=== PATIENT | male | born 1960 | race Two or more races ===

== ENCOUNTER 2018-12-03 09:49 | Day surgery (SDC) | payer BC ==
[~2018-12-03 09:49] MED LIST: Lactated Ringers 1,000 ML IV SCH
--- NOTE | 2018-12-03 10:15 | PCM.PREANE ---
Preanesthetic Assessment - Anesthesia/Transfusion/Family Hx Anesthesia History: Prior Anesthesia Without Reaction Family History of Anesthesia Reaction: No Transfusion History: No Prior Transfusion(s) - Review of Systems General: No Symptoms Pulmonary: No Symptoms Cardiovascular: No Symptoms Gastrointestinal: No Symptoms Neurological: No Symptoms Other: Reports: None - Physical Assessment Vital Signs: Last Vital Signs Temp 97.5 F 12/03/18 09:57 Pulse 101 H 12/03/18 09:57 Resp 16 12/03/18 09:57 BP 96/72 12/03/18 09:57 Pulse Ox 99 12/03/18 09:57 Height: 5 ft 7 in Weight: 79.832 kg ASA Class: 1 Mental Status: Alert & Oriented x3 Airway Class: Mallampati = 2 Dentition: Reports: Implants (has veneeres or crowns/implants on 3 or 4 central maxillary incisors) Lungs: Clear to Auscultation, Normal Respiratory Effort Cardiovascular: Regular Rate, Regular Rhythm - Allergies Allergies/Adverse Reactions: Allergies Allergy/AdvReac Type Severity Reaction Status Date / Time No Known Allergies Allergy Verified 11/30/18 09:50 - Blood Blood Available: No - Anesthesia Plan Pre-Op Medication Ordered: None - Acknowledgements Anesthesia Type Planned: General Anesthesia Pt an Appropriate Candidate for the Planned Anesthesia: Yes Alternatives and Risks of Anesthesia Discussed w Pt/Guardian: Yes Pt/Guardian Understands and Agrees with Anesthesia Plan: Yes Additional Comments: PMH: risk of dental imjury PLAN tiva PreAnesthesia Questionnaire HEENT History: Reports: None Cardiovascular History: Reports: None Respiratory History: Reports: None Gastrointestinal History: Reports: Colon Polyp, Other (See Below) Other Gastrointestinal History: difficulty swalling at times Genitourinary History: Reports: None Musculoskeletal History: Reports: None Neurological History: Reports: None Psychiatric History: Reports: None Endocrine/Metabolic History: Reports: None Hematologic History: Reports: None Immunologic History: Reports: None Oncologic (Cancer) History: Reports: None Dermatologic History: Reports: None - Past Surgical History Head Surgeries/Procedures: Reports: None HEENT Surgical History: Reports: None Cardiovascular Surgical History: Reports: None Respiratory Surgical History: Reports: None GI Surgical History: Reports: Appendectomy, Colonoscopy Male Surgical History: Reports: None Endocrine Surgical History: Reports: None Neurological Surgical History: Reports: None Musculoskeletal Surgical History: Reports: None Oncologic Surgical History: Reports: None Dermatological Surgical History: Reports: None - SUBSTANCE USE Smoking Status *Q: Never Smoker Recreational Drug Use History: No - HOME MEDS Home Medications: Home Meds . [No Known Home Meds] 11/30/18 [History] - CURRENT (IN HOUSE) MEDS Current Meds: Current Medications Lactated Ringer's (Ringers, Lactated) 1,000 mls @ 125 mls/hr IV ASDIRECTED [facility] Last Admin: 12/03/18 10:05 Dose: 125 mls/hr
[2018-12-03] MEDS ORDERED: Propofol 200 MG/20 ML SDV ONE ×2 (10:37→10:46)
[2018-12-03] MEDS ORDERED: Lidocaine 2% 5 ML SDV ONE (10:46)
[2018-12-03] MEDS ORDERED: Ketamine 500 mg/10 ML MDV ONE (10:46)
[2018-12-03] MEDS ORDERED: Glycopyrrolate 0.2 MG/ML SDV ONE ×2 (10:46)
--- NOTE | 2018-12-03 11:06 | PCM.OPNOTE ---
- General Post-Op/Procedure Note Date of Surgery/Procedure: 12/03/18 Operative Procedure(s): Esophagogastroduodenoscopy with antral and esophageal biopsies. Colonoscopy with cold cecal polypectomy. Pre Op Diagnosis: Dysphagia with progressive heartburn. Personal history of colon polyps. Post-Op Diagnosis: Acute gastritis. Esophagitis. Cecal polyp. Anesthesia Technique: MAC (ASA I) Primary Surgeon: Temo Beavers Condition: Good Free Text/Narrative:: DICTATION [id number] CPT CODE [id number]
[2018-12-03] MEDS ORDERED: Lactated Ringers 1,000 ML IV SCH (11:15)
--- NOTE | 2018-12-03 11:39 | PCM.POSTAN ---
POST ANESTHESIA ASSESSMENT - MENTAL STATUS Mental Status: Alert, Oriented - VITAL SIGNS Vital Signs: Last Vital Signs Temp 97.5 F 12/03/18 09:57 Pulse 88 12/03/18 11:32 Resp 16 12/03/18 11:32 BP 112/87 12/03/18 11:32 Pulse Ox 97 12/03/18 11:32 - RESPIRATORY Respiratory Status: Respiratory Rate WNL, Airway Patent, O2 Saturation Stable - CARDIOVASCULAR CV Status: Pulse Rate WNL, Blood Pressure Stable - GASTROINTESTINAL GI Status: No Symptoms - PAIN Pain Score: 0 - POST OP HYDRATION Hydration Status: Adequate & Stable - OBSERVATIONS Free Text/Narrative:: Stable for phase II recovery
--- NOTE | 2018-12-03 12:01 | PCM48HPAN ---
Post Anesthesia Note - EVALUATION WITHIN 48HRS OF ANESTHETIC Vital Signs in Normal Range: Yes Patient Participated in Evaluation: Yes Respiratory Function Stable: Yes Airway Patent: Yes Cardiovascular Function Stable: Yes Hydration Status Stable: Yes Pain Control Satisfactory: Yes Nausea and Vomiting Control Satisfactory: Yes Mental Status Recovered: Yes Vital Signs: Last Vital Signs Temp 97.5 F 12/03/18 09:57 Pulse 93 12/03/18 11:42 Resp 14 12/03/18 11:42 BP 127/66 12/03/18 11:42 Pulse Ox 99 12/03/18 11:42
--- NOTE | 2018-12-03 12:52 | OR ---
SURGEON: Temo Beavers M.D. DATE OF PROCEDURE: 12/03/2018 OPERATION PERFORMED: Esophagogastroduodenoscopy with biopsy. PRIMARY SURGEON: Temo Beavers MD. ANESTHESIA: MAC. ASA CLASSIFICATION: I. PREOPERATIVE DIAGNOSIS: Dysphagia with progressive heartburn. POSTOPERATIVE DIAGNOSIS: Acute gastritis without ulceration. DESCRIPTION OF PROCEDURE: The patient was taken to the endoscopy room and positioned on the endoscopy table in the left lateral decubitus position. Time-out was called for appropriate identification of the patient and procedure. Monitored anesthesia care was provided. The bite block was placed between the patient's teeth. The gastroscope was inserted through the bite block and advanced through the oropharynx into the esophagus without difficulty. It was then advanced through the esophagus and stomach into the duodenum where examination could now be carried out in a retrograde fashion. The duodenum shows no acute inflammatory changes or ulcerations. The stomach does show mild to moderate acute gastritis, particularly distally. Antral biopsies were obtained to look for the presence of Helicobacter pylori. The gastroscope was then retroflexed to visualize the proximal stomach. The patient does have a small hiatal hernia. No tumors or ulcerations were noted proximally. The gastroscope was then straightened and slowly withdrawn aspirating the stomach as the scope was withdrawn. The distal esophagus also shows some acute inflammatory changes and separate biopsies of the distal esophagus at the Z-line were obtained. No obvious tumor, mass, or ulcerations were noted. The esophagus itself demonstrates poor contractility with minimal longitudinal stripping waves. The vocal cords were not visualized as the scope was withdrawn. The gastroscope was then removed with the patient having tolerated this portion of the procedure well. Following colonoscopy, he was taken to recovery room in stable condition. JENNY / TRANG /[id number]
--- NOTE | 2018-12-03 13:07 | OR ---
SURGEON: Temo Beavers M.D. DATE OF PROCEDURE: 12/03/2018 OPERATION PERFORMED: Colonoscopy with cold cecal polypectomy. PRIMARY SURGEON: Temo Beavers MD. ANESTHESIA: MAC. ASA CLASSIFICATION: I. PREOPERATIVE DIAGNOSIS: Personal history of colon polyps. POSTOPERATIVE DIAGNOSIS: Cecal polyp. DESCRIPTION OF PROCEDURE: With the patient having completed an upper GI endoscopy, he was now maintained in the left lateral decubitus position. The colonoscope was inserted into the rectum and advanced with minimal difficulty to the cecum where the colonoscope was retroflexed to visualize the ascending colon from below. The colonoscope was then straightened and slowly withdrawn. One polyp was encountered in the cecum and this was removed with the cold biopsy forceps. The colonoscope had been retroflexed to visualize the ascending colon from below, then straightened and slowly withdrawn. The ascending colon, hepatic flexure, transverse colon, splenic flexure, descending colon, sigmoid colon, and rectum were very well visualized. There were no tumors or polyps. No diverticular changes were noted. There was no evidence of angiodysplasia or inflammatory bowel disease. Once the colonoscope was withdrawn to the rectum, it was retroflexed to visualize the anal orifice from above. Again, no tumors or polyps were seen and there were no acute hemorrhoidal changes. The colonoscope was then straightened, the rectum aspirated, and the colonoscope removed. The patient tolerated the procedure well and was taken to recovery room in stable condition. JENNY / TRANG /[id number]
== END 2018-12-03 12:04 | disposition home or self-care (01) ==
LOC: MW.SDS 09:49
PROVIDERS: ATTEND Surgery
DX: Z12.11 Encounter for screening for malignant neoplasm of colon (principal); D12.0 Benign neoplasm of cecum; K20.9 Esophagitis, unspecified; K29.00 Acute gastritis without bleeding; K29.50 Unspecified chronic gastritis without bleeding; B96.81 Helicobacter pylori [H. pylori] as the cause of diseases classified elsewhere; K44.9 Diaphragmatic hernia without obstruction or gangrene; R12 Heartburn; Z86.010 Personal history of colon polyps
CPT/HCPCS: J2001; J2704; J3490; J7120

== ENCOUNTER 2020-02-15 18:16 | Emergency (ER) | payer BC ==
[2020-02-15] MEDS ORDERED: Sodium Chloride 0.9% 10 ML Syringe FLUSH PRN (18:58)
[2020-02-15] MEDS ORDERED: Sodium Chloride 0.9% 2.5 ML Syringe FLUSH PRN (18:58)
[2020-02-15] MEDS ORDERED: Ondansetron 4 MG/2 ML SDV IVPUSH ONE (18:58)
[2020-02-15] MEDS ORDERED: Ketorolac 15 MG/ML SDV IVPUSH ONE (18:58)
--- NOTE | 2020-02-15 19:03 | EDM.PDOC ---
ED HPI GENERAL MEDICAL PROBLEM - General Chief Complaint: Abdominal Pain Stated Complaint: ABDOMINAL PAIN, NAUSEA Time Seen by Provider: 02/15/20 18:54 - History of Present Illness INITIAL COMMENTS - FREE TEXT/NARRATIVE: History of present illness: [] The patient had onset after working 1:30 PM today of pain in the right upper quadrant. It seems to go across his abdomen from the right upper quadrant to the left and he is putting heating pad. He had no rash until he put a heating pad. Nausea and vomited 3 times. Flush but does not have any documented fever. He had the feeling he was going to have diarrhea but he did not have diarrhea and did not in fact have a stool today. Urine function appears normal but he has a feeling of fullness like he has to go even after he empties. He has a past history of kidney stone and no gallbladder problems. He is a non-smoker and does not take any medicine. Review of systems: As per history of present illness and below otherwise all systems reviewed and negative. Past medical history: As per history of present illness and as reviewed below otherwise noncontributory. Surgical history: As per history of present illness and as reviewed below otherwise noncontributory. Social history: No reported history of drug or alcohol abuse. Family history: As per history of present illness and as reviewed below otherwise noncontributory. Physical exam: Constitutional - well developed, well-nourished and in no acute distress HEENT - normocephalic, no evidence of trauma - external nose and mouth normal - no mass in neck and no JVD - mucosae moist EYES - full EOM, PERRL, no icterus - no evidence of inflammation, injection, or drainage Respiratory - no respiratory distress, equal bilateral expansion, lungs clear to auscultation and no abnormal lung sounds Cardiovascular - Regular Rhythm with S1 and S2 appreciated and no murmur, gallop or rub. GI -this in the right upper quadrant. This is localized near where Whitten sign but he is not guarding that area. Abdomen soft without distension or organomegaly - normal bowel sounds - no guard or rebound Normal external genitalia no mass Musculoskeletal no gross deformity of long bones or joints - no tenderness, swelling or edema Neurologic - Alert and oriented times four - CN II-XII grossly intact - motor sensory and coordination symmetrically normal Psychiatric - appropriate mood and affect with normal thought content Hematologic - No petechiae or purpura - mucosa appropriate color and sclera not pale - normal nail bed color and refill Integument - no rash or evidence of trauma - normal turgor Diagnostics: [] Therapeutics: [] Impression: [] Plan: [] Definitive disposition and diagnosis as appropriate pending reevaluation and review of above. abdomen Pain Score (Numeric/FACES): 8 - Related Data Allergies Allergy/AdvReac Type Severity Reaction Status Date / Time No Known Allergies Allergy Verified 11/30/18 09:50 Home Meds: Home Meds . [No Known Home Meds] 11/30/18 [History] Past Medical History HEENT History: Reports: None Cardiovascular History: Reports: None Respiratory History: Reports: None Gastrointestinal History: Reports: Colon Polyp, Other (See Below) Other Gastrointestinal History: difficulty swalling at times Genitourinary History: Reports: None Musculoskeletal History: Reports: None Neurological History: Reports: None Psychiatric History: Reports: None Endocrine/Metabolic History: Reports: None Hematologic History: Reports: None Immunologic History: Reports: None Oncologic (Cancer) History: Reports: None Dermatologic History: Reports: None - Past Surgical History Head Surgeries/Procedures: Reports: None HEENT Surgical History: Reports: None Cardiovascular Surgical History: Reports: None Respiratory Surgical History: Reports: None GI Surgical History: Reports: Appendectomy, Colonoscopy Male Surgical History: Reports: None Endocrine Surgical History: Reports: None Neurological Surgical History: Reports: None Musculoskeletal Surgical History: Reports: None Oncologic Surgical History: Reports: None Dermatological Surgical History: Reports: None ED ROS GENERAL - Review of Systems Review Of Systems: Comprehensive ROS is negative, except as noted in HPI. ED EXAM, GENERAL - Physical Exam Exam: See Below Free Text/Narrative:: My physical exam is in the HPI Course - Vital Signs Last Recorded V/S: Last Vital Signs Temp 36.4 C 02/15/20 18:34 Pulse 86 02/15/20 20:04 Resp 18 02/15/20 20:04 BP 122/85 02/15/20 20:04 Pulse Ox 96 02/15/20 20:04 The patient is asymptomatic after 1 dose of ketorolac. He has a 1 to 2 mm distal UVJ stone on the right. He has perinephric fluid suggesting calyceal injury. He has a BUN and creatinine slightly elevated in the face of normal lab work according to him a year ago. Discussed with Dr. Griffin and he will see him in the office in 2 days. - Orders/Labs/Meds Orders: Active Orders 24 hr Category Date Time Status Strain Urine [RC] ASDIRECTED Care 02/15/20 19:00 Active Sodium Chloride 0.9% [Normal Saline] 1,000 ml Med 02/15/20 19:15 Active IV ASDIRECTED Sodium Chloride 0.9% [Saline Flush] Med 02/15/20 18:58 Active 10 ml FLUSH ASDIRECTED PRN Sodium Chloride 0.9% [Saline Flush] Med 02/15/20 18:58 Active 2.5 ml FLUSH ASDIRECTED PRN Saline Lock Insert [OM.PC] Stat Oth 02/15/20 18:59 Ordered Medication Orders Sodium Chloride (Normal Saline) 1,000 mls @ 150 mls/hr IV ASDIRECTED [facility] Last Admin: 02/15/20 19:16 Dose: 150 mls/hr Documented by: [id number] Sodium Chloride (Saline Flush) 10 ml FLUSH ASDIRECTED PRN PRN Reason: Keep Vein Open Sodium Chloride (Saline Flush) 2.5 ml FLUSH ASDIRECTED PRN PRN Reason: Keep Vein Open Labs: Laboratory Tests 02/15/20 02/15/20 02/15/20 Range/Units 19:16 19:16 20:15 WBC 14.19 H (4.0-11.0) K/uL RBC 5.46 (4.50-5.90) M/uL Hgb 14.6 (13.0-17.0) g/dL Hct 43.9 (38.0-50.0) % MCV 80.4 (80.0-98.0) fL MCH 26.7 L (27.0-32.0) pg MCHC 33.3 (31.0-37.0) g/dL RDW Std Deviation 38.5 (28.0-62.0) fl RDW Coeff of Bernardo 13 (11.0-15.0) % Plt Count 215 (150-400) K/uL MPV 10.90 (7.40-12.00) fL Neut % (Auto) 87.9 H (48.0-80.0) % Lymph % (Auto) 5.1 L (16.0-40.0) % Barton % (Auto) 6.9 (0.0-15.0) % Eos % (Auto) 0.0 (0.0-7.0) % Baso % (Auto) 0.1 (0.0-1.5) % Neut # (Auto) 12.5 H (1.4-5.7) K/uL Lymph # (Auto) 0.7 (0.6-2.4) K/uL Barton # (Auto) 1.0 H (0.0-0.8) K/uL Eos # (Auto) 0.0 (0.0-0.7) K/uL Baso # (Auto) 0.0 (0.0-0.1) K/uL Nucleated RBC % 0.0 /100WBC Nucleated RBCs # 0 K/uL Sodium 136 (136-148) mmol/L Potassium 3.7 (3.5-5.1) mmol/L Chloride 101 (98-107) mmol/L Carbon Dioxide 25.2 (21.0-32.0) mmol/L BUN 19 H (7.0-18.0) mg/dL Creatinine 1.7 H (0.8-1.3) mg/dL Est Cr Clr Drug Dosing 44.28 mL/min Estimated GFR (MDRD) 41.6 ml/min Glucose 124 H (74-106) mg/dL Calcium 9.5 (8.5-10.1) mg/dL Total Bilirubin 0.8 (0.2-1.0) mg/dL AST 18 (15-37) IU/L ALT 32 (14-63) IU/L Alkaline Phosphatase 70 (46-116) U/L Total Protein 7.6 (6.4-8.2) g/dL Albumin 4.2 (3.4-5.0) g/dL Globulin 3.4 (2.6-4.0) g/dL Albumin/Globulin Ratio 1.2 (0.9-1.6) Lipase 104 (73-393) U/L Urine Color YELLOW Urine Appearance CLEAR Urine pH 6.0 (5.0-8.0) Ur Specific [place] 1.010 (1.001-1.035) Urine Protein NEGATIVE (NEGATIVE) mg/dL Urine Glucose (UA) NEGATIVE (NEGATIVE) mg/dL Urine Ketones NEGATIVE (NEGATIVE) mg/dL Urine Occult Blood NEGATIVE (NEGATIVE) Urine Nitrite NEGATIVE (NEGATIVE) Urine Bilirubin NEGATIVE (NEGATIVE) Urine Urobilinogen 0.2 (<2.0) EU/dL Ur Leukocyte Esterase NEGATIVE (NEGATIVE) Meds: Medications Generic Name Dose Route Start Last Admin Trade Name Freq PRN Reason Stop Dose Admin Sodium Chloride 1,000 mls @ 150 mls/hr 02/15/20 19:15 02/15/20 19:16 Normal Saline IV 150 mls/hr ASDIRECTED [facility] Administration Sodium Chloride 10 ml 02/15/20 18:58 Saline Flush FLUSH ASDIRECTED PRN Keep Vein Open Sodium Chloride 2.5 ml 02/15/20 18:58 Saline Flush FLUSH ASDIRECTED PRN Keep Vein Open Discontinued Medications Generic Name Dose Route Start Last Admin Trade Name Freq PRN Reason Stop Dose Admin Ketorolac Tromethamine 15 mg 02/15/20 18:58 02/15/20 19:16 Toradol IVPUSH 02/15/20 18:59 15 mg ONETIME ONE Administration Ondansetron HCl 4 mg 02/15/20 18:58 02/15/20 19:16 Zofran IVPUSH 02/15/20 18:59 4 mg ONETIME ONE Administration Departure - Departure Time of Disposition: 20:52 Disposition: Home, Self-Care 01 Condition: Good Clinical Impression: Ureter colic, Ureteral stone, Renal injury - Discharge Information Instructions: Kidney Stones, [id number] Referrals: Ofelia GAMBINO [Primary Care Provider] - Danny Griffin MD [Physician] - Forms: ED Department Discharge Additional Instructions: Our urologist wants you to call and see him on Monday. His name is Dr. Griffin and that is in your discharge instructions. The following information is given to patients seen in the emergency department who are being discharged to home. This information is to outline your options for follow-up care. We provide all patients seen in our emergency department with a follow-up referral. The need for follow-up, as well as the timing and circumstances, are variable depending upon the specifics of your emergency department visit. If you don't have a primary care physician on staff, we will provide you with a referral. We always advise you to contact your personal physician following an emergency department visit to inform them of the circumstance of the visit and for follow-up with them and/or the need for any referrals to a consulting specialist. The emergency department will also refer you to a specialist when appropriate. This referral assures that you have the opportunity for follow-up care with a specialist. All of these measure are taken in an effort to provide you with optimal care, which includes your follow-up. Under all circumstances we always encourage you to contact your private physician who remains a resource for coordinating your care. When calling for follow-up care, please make the office aware that this follow-up is from your recent emergency room visit. If for any reason you are refused follow-up, please contact the [facility] Emergency Department at and asked to speak to the emergency department charge nurse. Sepsis Event Note (ED) - Focused Exam Vital Signs: Vital Signs Temp Pulse Resp BP Pulse Ox 02/15/20 20:04 86 18 122/85 96 02/15/20 18:34 36.4 C 102 H 18 150/88 H 94 L - My Orders Last 24 Hours: My Active Orders 02/15/20 18:58 Sodium Chloride 0.9% [Saline Flush] 10 ml FLUSH ASDIRECTED PRN Sodium Chloride 0.9% [Saline Flush] 2.5 ml FLUSH ASDIRECTED PRN 02/15/20 18:59 Saline Lock Insert [OM.PC] Stat 02/15/20 19:00 Strain Urine [RC] ASDIRECTED 02/15/20 19:15 Sodium Chloride 0.9% [Normal Saline] 1,000 ml IV ASDIRECTED - Assessment/Plan Last 24 Hours: My Active Orders 02/15/20 18:58 Sodium Chloride 0.9% [Saline Flush] 10 ml FLUSH ASDIRECTED PRN Sodium Chloride 0.9% [Saline Flush] 2.5 ml FLUSH ASDIRECTED PRN 02/15/20 18:59 Saline Lock Insert [OM.PC] Stat 02/15/20 19:00 Strain Urine [RC] ASDIRECTED 02/15/20 19:15 Sodium Chloride 0.9% [Normal Saline] 1,000 ml IV ASDIRECTED
[2020-02-15] MEDS ORDERED: Sodium Chloride 0.9% 1,000 ML IV SCH (19:15)
[2020-02-15 19:45] LABS: CARBON DIOXIDE,CO2 25.2 mmol/L (21.0-32.0); POTASSIUM,K 3.7 mmol/L (3.5-5.1)
--- NOTE | 2020-02-15 20:19 | CR ---
Indication: Right upper quadrant pain Technique: Chest 1 view Comparison: None Findings/Impression: Cardiovascular and mediastinum: Heart size and vasculature are normal in caliber and appearance. Mediastinum is within normal limits. Lungs and pleural space: Multiple bilateral calcified granulomas. No consolidation or pleural effusions. No pneumothorax seen. Bones and soft tissues: No significant findings. Dictated by Elías Guevara MD @ Feb 15 2020 8:16PM Signed by Dr. Elías Guevara @ Feb 15 2020 8:18PM
--- NOTE | 2020-02-15 20:34 | CT ---
INDICATION: Right upper quadrant pain TECHNIQUE: CT abdomen and pelvis without contrast. COMPARISON: None available FINDINGS: Lower chest: Multiple calcified granulomas bilaterally. Liver: Unremarkable. Spleen: Unremarkable. Pancreas: Unremarkable. Gallbladder and bile ducts: Unremarkable. Adrenal glands: Unremarkable. Kidneys: Very mild right hydronephrosis and mild hydroureter with perirenal and periureteral stranding and edema and a 1-2 mm calcification in the distal right ureter near the UVJ. Anterior right perirenal and pararenal fluid could represent partial caliceal rupture. A punctate nonobstructive left renal calcification. A 2.5 x 2.0 cm exophytic left renal lower pole cyst which could be slightly complex, and an additional 9 mm posterior left renal lower pole low-density lesion suggestive of a cyst. GI tract: A small calcification along the distal esophageal wall, probably a calcified granuloma versus a small calcified lymph node. Ingested calcific densities in the proximal gastric lumen. No high-grade mechanical bowel obstruction. Nondilated gas-filled small bowel segments are nonspecific. The appendix is not seen. No significant pericolonic changes. Vascular structures: Minor atherosclerotic changes. Lymph nodes: Unremarkable. Miscellaneous: No free air. Pelvic Organs: Grossly unremarkable prostate. Borderline bladder wall thickness could be related to underdistention. Bones: Bilateral L5 spondylolysis. IMPRESSION: Mild right obstructive uropathy due to a 1-2 mm distal right ureteral calculus. Small right perirenal/pararenal fluid could represent partial calyceal rupture. A punctate nonobstructive left renal calcification. A left renal exophytic cyst which may be slightly complex. Follow-up with nonemergent sonography. Borderline bladder wall thickness could be related to under distention. Correlate with urinalysis. Nonspecific gas-filled small bowel segments which may represent mild reactive ileus. Old granulomatous disease. Please note that all CT scans at this facility use dose modulation, iterative reconstruction, and/or weight-based dosing when appropriate to reduce radiation dose to as low as reasonably achievable. Dictated by Elías Guevara MD @ Feb 15 2020 8:16PM Signed by Dr. Elías Guevara @ Feb 15 2020 8:31PM
--- NOTE | 2020-02-16 12:37 | PCM.SN.2 ---
- Free Text/Narrative Note: I was contacted by the pharmacy about the patient's [place] prescription not going through. I canceled the previous prescription from Dr. Oneal and represcribed an identical prescription for [place] 3257.5, transmitted to the pharmacy.
== END 2020-02-15 21:25 | disposition home or self-care (01) ==
LOC: MW.ED 18:16
DX: N17.9 Acute kidney failure, unspecified (principal); N13.2 Hydronephrosis with renal and ureteral calculous obstruction
CPT/HCPCS: 36415; 71045; 74176; 80053; 81003; 83690; 85025; 96374; 96375; 99284; J1885; J2405; J7030; 99283